=== PATIENT | female | born 1950 | race Caucasian/White ===

== ENCOUNTER 2023-02-21 09:57 | Day surgery (SDC) | payer MEDICARE, MEDICAID ==
[2023-02-21] VITALS (17 sets, daily range): BP systolic 127–185; BP diastolic 75–118; PULSE 72–93; RESP 7–22; TEMP 97.1; O2SAT 92–100
[~2023-02-21] VITALS: Ht 172.7 cm; Wt 102.1 kg
[~2023-02-21 09:57] MED LIST: ASPI-128 PO; ATOR20TA66 PO; CITA20TA2 PO; FAMO-128 PO; IBUP-1985 PO; LEVO112T5 PO; LOSA-416 PO; METF-900 PO; METH-797 PO; MULT-1130 PO; MULT-1219 PO; cefazolin 2gm/D5W 100mL 100 ML IV ONE; famotidine 20mg tablet PO ONE; oxymetazoline 15 ML nasal spray NS ONE; ringers solution, lacted 1,000 ML IV SCH; tranexamic acid inj. 1,000 MG in normal saline IV soln 100ML IV ONE
[2023-02-21] MEDS ORDERED: cocaine 4% topical solution 4ml bottle ONE (11:02)
[2023-02-21] MEDS ORDERED: LIDOcaine 1% w/EPI 1:100,000 inj. MDV 50 ML VIAL ONE (11:02)
[2023-02-21] MEDS ORDERED: mupirocin 2% ointment 22GM ONE (11:03)
[2023-02-21] MEDS ORDERED: oxymetazoline 15 ML nasal spray NS ONE ×2 (11:03→13:00)
[2023-02-21] MEDS ORDERED: epiNEPHrine 1 mg/ml 30ml MDV ONE (11:03)
[2023-02-21] MEDS ORDERED: mupirocin 2% cream 15gm TP ONE (13:00)
[2023-02-21] MEDS ORDERED: cefTAZidime 1gm inj IM ONE (13:00)
[2023-02-21] MEDS ORDERED: cocaine 4% topical solution 4ml bottle TP ONE (13:00)
[2023-02-21] MEDS ORDERED: LIDOcaine 1% w/EPI 1:100,000 30ml vial (MDV) IJ ONE (13:00)
[2023-02-21] MEDS ORDERED: epiNEPHrine 1 mg/ml 30ml MDV SQ ONE (13:00)
[2023-02-21] MEDS ORDERED: sevoflurane 250ml liquid IH ONE (13:21)
[2023-02-21] MEDS ORDERED: fentaNYL/PF 50MCG/1 ML 2ML syringe ONE (13:22)
[2023-02-21] MEDS ORDERED: cefTAZidime 1gm inj ONE (13:48)
[2023-02-21] MEDS ORDERED: ondansetron/PF 4mg/2ml inj IV PRN (13:55)
[2023-02-21] MEDS ORDERED: morphine 2 MG/ML inj. syringe IV PRN (13:55)
[2023-02-21] MEDS ORDERED: HYDROmorphone/PF 0.2 MG/ML SYRINGE IV PRN ×2 (13:55)
[2023-02-21] MEDS ORDERED: labetalol 20mg/4ml (5mg/ml) syringe IV PRN (13:55)
[2023-02-21] MEDS ORDERED: ringers solution, lacted 1,000 ML IV SCH (13:55)
[2023-02-21] MEDS ORDERED: ePHEDrine 50MG/ML INJ. ONE (14:03)
[2023-02-21] MEDS ORDERED: LIDOcaine 2% (20mg/ml) 5ml vial ONE (14:03)
[2023-02-21] MEDS ORDERED: propofol inj 20 ML IV ONE (14:03)
[2023-02-21] MEDS ORDERED: dexamethasone sod phosphate 4mg/ml inj. ONE (14:03)
[2023-02-21] MEDS ORDERED: ondansetron/PF 4mg/2ml inj ONE (14:03)
[2023-02-21] MEDS: morphine 4 MG/ML inj SYRINge IV PRN ×2 (14:10→14:47)
[2023-02-21] MEDS: hydrALAZINE 20mg/ml inj. IV PRN ×2 (14:41→15:46)
[2023-02-21] MEDS ORDERED: acetaminophen 1,000mg/100ml IV 100 ML IV ONE ×2 (14:55→20:00)
[2023-02-21] MEDS ORDERED: salt irrigation nasal spray 45 ML SPRAY NS PRN (14:55)
== END 2023-02-21 16:33 | disposition home or self-care (01) ==
LOC: PAS 09:57
PROVIDERS: ATTEND Otolaryngology
DX: J34.1 Cyst and mucocele of nose and nasal sinus (principal); H46.9 Unspecified optic neuritis; I10 Essential (primary) hypertension; K21.9 Gastro-esophageal reflux disease without esophagitis; E11.42 Type 2 diabetes mellitus with diabetic polyneuropathy; E03.9 Hypothyroidism, unspecified; E66.9 Obesity, unspecified; Z68.34 Body mass index [BMI] 34.0-34.9, adult; Z90.710 Acquired absence of both cervix and uterus; Z90.49 Acquired absence of other specified parts of digestive tract; Z98.890 Other specified postprocedural states
CPT/HCPCS: 31259; 61782; 82948; 93005; A6402; J0131; J0171; J0360; J0690; J0713; J1100; J2270; J2405; J2704; J3010; J3490; J7030; J7050; J7120; Z7506; Z7512; A4618; A6449; A7000

== ENCOUNTER 2023-10-19 05:40 | Day surgery (SDC) | payer MEDICARE, MEDICAID ==
[2023-10-18 12:13] LABS: BASOPHILS # (AUTO) 0.1 X10'3 (0-0.2); BASOPHILS % (AUTO) 0.7 % (0-1); EOSINOPHILS # (AUTO) 0.8 X10'3 (0-0.9); EOSINOPHILS % (AUTO) 8.8 % (0-6); LYMPHOCYTES # (AUTO) 3.6 X10'3 (1.1-4.8); LYMPHOCYTES % (AUTO) 38.7 % (21-51); MEAN CORPUSCULAR HEMOGLOBIN 30.2 PG (27.0-31.0); MEAN CORPUSCULAR HGB CONC 32.7 g/dL (33.0-36.5); MEAN CORPUSCULAR VOLUME 92.1 FL (78-98); MEAN PLATELET VOLUME 7.9 FL (7.4-10.4); MONOCYTES # (AUTO) 0.8 X10'3 (0-0.9); MONOCYTES % (AUTO) 8.1 % (2-12); NEUTROPHILS # (AUTO) 4.1 X10'3 (1.8-7.7); NEUTROPHILS % (AUTO) 43.7 % (42-75); PRE OP HEMATOCRIT 40.9 % (35.0-45.0); PRE OP HEMOGLOBIN 13.4 g/dL (12.0-16.0); PRE OP PLATELET COUNT 350 X10'3 (140-440); PRE OP WHITE BLOOD COUNT 9.4 10'3 (4.8-10.8); RED BLOOD COUNT 4.44 X10'6 (4.20-5.60); RED CELL DISTRIBUTION WIDTH 13.9 % (11.5-14.5)
[2023-10-18 12:19] LABS: ALBUMIN 3.4 G/DL (3.4-5.0); ALBUMIN/GLOBULIN RATIO 0.9 (1.1-1.5); ALKALINE PHOSPHATASE 62 IU/L (46-116); BLOOD UREA NITROGEN 7 MG/DL (7-18); BUN/CREATININE RATIO 5.7 (10.0-20.0); CALCIUM 9.6 MG/DL (8.5-10.1); CHLORIDE 105 MMOL/L (99-107); CREATININE 1.23 MG/DL (0.40-0.90); PRE OP ALT 21 U/L (30-65); PRE OP ANION GAP 8 (8-16); PRE OP AST 23 U/L (10-37); PRE OP BILIRUB, TOTAL 0.6 MG/DL (0.0-1.0); PRE OP GLUCOSE 107 MG/DL (70-104); PRE OP SODIUM 141 MMOL/L (135-145); TOTAL PROTEIN 7.2 G/DL (6.4-8.2); eGFR 43 ML/MIN
[~2023-10-19] VITALS: Ht 172.7 cm; Wt 99.8 kg
[2023-10-19] MEDS: cefazolin 2gm/D5W 100mL 100 ML IV ONE (05:30)
[~2023-10-19 05:40] MED LIST changes: -ASPI-128 PO; +GABA600T13 PO; -IBUP-1985 PO; -METH-797 PO; -MULT-1130 PO; +TRAZ-256 PO; -cefazolin 2gm/D5W 100mL 100 ML IV ONE; -famotidine 20mg tablet PO ONE; -oxymetazoline 15 ML nasal spray NS ONE; -ringers solution, lacted 1,000 ML IV SCH; -tranexamic acid inj. 1,000 MG in normal saline IV soln 100ML IV ONE
[2023-10-19 05:48] VITALS: BP 142/72; PULSE 74; RESP 16; TEMP 97.7; O2SAT 98
[2023-10-19] MEDS: famotidine 20mg tablet PO ONE (06:25)
[2023-10-19] MEDS: ringers solution, lacted 1,000 ML IV SCH (06:25)
[2023-10-19] MEDS ORDERED: fentaNYL/PF 50MCG/1 ML 2ML syringe ONE ×2 (07:10→08:31)
[2023-10-19] MEDS ORDERED: midazolam 1 mg/ML 2ml injection ONE (07:10)
[2023-10-19] MEDS ORDERED: LIDOcaine 2% (20mg/ml) 5ml vial ONE (07:10)
[2023-10-19] MEDS ORDERED: propofol inj 20 ML IV ONE (07:10)
[2023-10-19] MEDS ORDERED: ondansetron/PF 4mg/2ml inj ONE (07:10)
[2023-10-19] MEDS ORDERED: dexamethasone sod phosphate 4mg/ml inj. ONE (07:10)
[2023-10-19] MEDS ORDERED: ondansetron/PF 4mg/2ml inj IV PRN (07:25)
[2023-10-19] MEDS ORDERED: morphine 4 MG/ML inj SYRINge IV PRN (07:25)
[2023-10-19] MEDS ORDERED: fentaNYL/PF 50MCG/1 ML 2ML syringe IV PRN ×2 (07:25)
[2023-10-19] MEDS ORDERED: morphine 2 MG/ML inj. syringe IV PRN (07:25)
[2023-10-19] MEDS ORDERED: hydrALAZINE 20mg/ml inj. IV PRN (07:25)
[2023-10-19] MEDS ORDERED: labetalol 20mg/4ml (5mg/ml) syringe IV PRN (07:25)
[2023-10-19] MEDS ORDERED: ringers solution, lacted 1,000 ML IV SCH (07:25)
[2023-10-19] MEDS ORDERED: sevoflurane 250ml liquid IH ONE (07:30)
[2023-10-19] MEDS: BUPIVAcaine 2.5mg/ml inj 50ml vial (contains preservative) ONE (08:22)
[2023-10-19] MEDS: LIDOcaine 1% (10mg/ml)w/preservative inj. 20ml MDV ONE (08:23)
[2023-10-19 09:32] VITALS: BP 151/75; PULSE 95; RESP 16; O2SAT 96
[2023-10-19 09:40] VITALS: BP 143/70; PULSE 95; RESP 22; O2SAT 93
[2023-10-19 09:50] VITALS: BP 127/81; PULSE 96; RESP 13; O2SAT 94
[2023-10-19] MEDS ORDERED: HYDROcodone/acetaminophen 5mg/325mg tablet PO PRN (09:55)
[2023-10-19 10:10] VITALS: BP 147/72; PULSE 97; RESP 14; O2SAT 93
== END 2023-10-19 10:12 | disposition home or self-care (01) ==
LOC: PAS 05:40
PROVIDERS: ATTEND Surgery
DX: R59.1 Generalized enlarged lymph nodes (principal); I10 Essential (primary) hypertension; E11.40 Type 2 diabetes mellitus with diabetic neuropathy, unspecified; E03.9 Hypothyroidism, unspecified; E66.9 Obesity, unspecified; K21.9 Gastro-esophageal reflux disease without esophagitis; F41.9 Anxiety disorder, unspecified; F32.A Depression, unspecified; Z79.84 Long term (current) use of oral hypoglycemic drugs; Z79.890 Hormone replacement therapy; Z79.899 Other long term (current) drug therapy; Z90.49 Acquired absence of other specified parts of digestive tract; Z90.710 Acquired absence of both cervix and uterus; Z98.890 Other specified postprocedural states; Z68.33 Body mass index [BMI] 33.0-33.9, adult; Z82.5 Family history of asthma and other chronic lower respiratory diseases; Z83.3 Family history of diabetes mellitus; Z82.49 Family history of ischemic heart disease and other diseases of the circulatory system
CPT/HCPCS: 36415; 38510; 80053; 82948; 85025; 93005; A4215; A4618; A7000; J0690; J1100; J2001; J2250; J2405; J2704; J3010; J3490; J7030; J7120; Z7506; Z7508; Z7512; Z7610